=== PATIENT | male | born 1945 | race Caucasian/White ===

== ENCOUNTER → 2017-04-17 | Day surgery (SDC) | payer OTHER ==
[~2017-04-17] MED LIST: BUPIVACAINE/EPINEPHRINE 0.5% 50 ML VIAL ONE; KETOROLAC TROMETHAMINE 30 MG/ML (IVP) VIAL IV PUSH ONE; LACTATED RINGER'S 1000 ML INJ 1,000 ML IV ONE; MORPHINE SULFATE 4 MG/ML INJ ONE; ONDANSETRON HCL 4 MG/2 ML VIAL IV PUSH ONE; PROPOFOL 200 MG/20 ML AMP IV ONE; ceFAZolin INJ 1,000 MG VIAL ONE
--- NOTE | 2017-04-17 11:25 | MP ---
cc: AGUSTINA LEOS M.D. DATE OF SURGERY 04/17/2017 PREOPERATIVE DIAGNOSIS Right knee medial and lateral meniscus tear. POSTOPERATIVE DIAGNOSIS Right knee medial and lateral meniscus tear. PROCEDURE Right knee arthroscopic partial medial and partial lateral meniscectomy. ANESTHESIA General SURGEON Agustina Leos MD ESTIMATED BLOOD LOSS Minimum SPECIMEN Fragments discarded. COMPLICATIONS None known. INDICATION Cabrera Price is a 72-year-old male with persistent right knee pain and positive MRI and now presents for arthroscopic surgery. The risks and benefits thoroughly discussed and a detail informed consent was obtained. PROCEDURE The patient was brought into the operating room and was placed under general anesthetic. The right lower extremity was prepped and draped in the usual sterile fashion. IV antibiotics were given. Time-out was completed. Inferolateral portal was made with Marcaine about the portal. A blunt trocar used to introduce the cannula. The knee insufflated with saline after the effusion was drained. We noted healthy-appearing cartilage in the trochlear groove and patella. The notch appeared normal. Normal appearing ACL. The medial compartment showed unstable tear involving the body and the posterior horn of the medial meniscus which involved at least 50% of the meniscus in these locations. We proceeded with arthroscopic partial medial meniscectomy using a combination of basket forceps and arthroscopic shaver. Gentle chondroplasty on the medial femoral condyle and a small area on the most lateral edge of the medial femoral condyle. We then visualize the lateral compartment where a complex tear involving the anterior horn body and posterior horn. There was a minimal amount of meniscus still remaining at the popliteal hiatus. Most of the posterior horn was involved. We proceeded with arthroscopic partial lateral meniscectomy using a combination of basket forceps and arthroscopic shaver. Follow-up photograph shows the final results here. We did use electrocautery for hemostasis as needed through the case. The arthroscopic equipment was removed after repeat diagnostic arthroscopy revealed no loose bodies. Marcaine had been injected about the portals. Steri-Strips applied. Sterile dressing applied. The patient was awoken and returned to the recovery room in stable condition. MD THAD Aguillon/BARRIE /11:16 AM /11:20 AM
== END | disposition home or self-care (01) ==
LOC: ESDC 08:26
PROVIDERS: ATTEND Orthopaedic Surgery Sports Medicine
DX: S83.241A Other tear of medial meniscus, current injury, right knee, initial encounter (principal); S83.281A Other tear of lateral meniscus, current injury, right knee, initial encounter
CPT/HCPCS: 01400; 29880; J0690; J1885; J2270; J2405; J3010; J7120